=== PATIENT | female | born 1985 | race African-American/Black ===

== ENCOUNTER 2018-12-19 04:35 | Emergency (ER) | payer SELFPAY ==
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
[2018-12-19] MEDS ORDERED: Gadobenate Dimeglumine 529 MG/1 ML (20ML VIAL) ONE (10:51)
== END 2018-12-19 11:20 | disposition home or self-care (01) ==
LOC: ERS 04:35
DX: M48.02 Spinal stenosis, cervical region (principal); F41.9 Anxiety disorder, unspecified; Z87.891 Personal history of nicotine dependence; V43.62XA Car passenger injured in collision with other type car in traffic accident, initial encounter
CPT/HCPCS: 72156; A9577